=== PATIENT | female | born 1960 | race Caucasian/White ===

== ENCOUNTER 2016-09-17 08:02 | Outpatient (CLI) | payer OTHER | END 2016-09-17 08:03 | disposition home or self-care (01) | DX: Z00.00 Encounter for general adult medical examination without abnormal findings (principal); E78.5 Hyperlipidemia, unspecified ==

== ENCOUNTER 2019-06-29 14:12 | Emergency (ER) | payer OTHER ==
[2019-06-29 14:19] VITALS: BP 141/66
[2019-06-29] MEDS ORDERED: BUFFERED LIDOCAINE 10 ML SYRINGE SUBQ STA (14:38)
--- NOTE | 2019-06-29 14:39 | ED Physician Documentation ---
PD HPI UPPER EXT INJURY - Stated complaint Stated Complaint: 5TH DIGIT FINGER LAC - Chief complaint Chief Complaint: Laceration - History obtained from History obtained from: Patient (58-year-old woman who is up-to-date on tetanus cut her right pinky finger on sharp ice while cleaning out her freezer at home just prior to arrival.) Review of Systems Constitutional: reports: Reviewed and negative Cardiac: reports: Reviewed and negative Respiratory: reports: Reviewed and negative PD PAST MEDICAL HISTORY - Allergies Allergies/Adverse Reactions: Allergies Allergy/AdvReac Type Severity Reaction Status Date / Time Sulfa (Sulfonamide Allergy Rash Verified 06/29/19 14:18 Antibiotics) PD ED PE NORMAL - Vitals Vital signs reviewed: Yes - General General: Alert and oriented X 3, No acute distress - Extremities Extremities: Other (There is a 3 cm laceration on the palmar surface of the right pinky finger, it runs longitudinally basically from the flexor crease at the MCP to the middle part of the mid phalanx. There is no distal neurovascular compromise.) - Neuro Neuro: Alert and oriented X 3, Normal speech Results - Vitals Vitals: Vital Signs - 24 hr 06/29/19 14:16 Temperature 36 C L Heart Rate 102 H Respiratory 18 Rate Blood Pressure 141/66 H O2 Saturation 97 Oxygen O2 Source Room air Procedures - Laceration (location) R 5th finger Length in cm: 3 Wound type: Linear Neurovascular status: Sensory intact, Motor intact, Vascular intact Tendon involvement: Tendon intact Anesthesia: Lidocaine 1%, With bicarb Skin layer closure: Nylon, Interrupted, Size #-0 - enter number (5-0), Sutures - enter # (9) Other: Patient tolerated well, No complications, Neurovascular intact, Tetanus UTD Complexity: Simple Departure - Departure Disposition: 01 Home, Self Care Clinical Impression: Laceration Condition: Good Record reviewed to determine appropriate education?: Yes Instructions: ED Laceration Hand Comments: Come back for any signs of infection which would include: Redness, swelling, drainage, increased pain, or fevers. You can wash it soap and water. Keep it covered and moist with bacitracin ointment which is available over the counter; avoid neosporin. Follow-up with your physician in about 14 days for suture removal. Your blood pressure was elevated today on check into the emergency department. This does not mean that you have hypertension, it is a common phenomenon to come to the emergency department and have elevated blood pressure. I recommend that you see your primary care physician within the week to have it rechecked when you are feeling better.
[2019-06-29] MEDS ORDERED: BACITRACIN ZINC OINT 1 PACKET TOP STA (15:04)
== END 2019-06-29 15:25 | disposition home or self-care (01) ==
LOC: ED 14:12
DX: S61.216A Laceration without foreign body of right little finger without damage to nail, initial encounter (principal); W26.8XXA Contact with other sharp object(s), not elsewhere classified, initial encounter; Y93.E9 Activity, other interior property and clothing maintenance; Y92.009 Unspecified place in unspecified non-institutional (private) residence as the place of occurrence of the external cause; R03.0 Elevated blood-pressure reading, without diagnosis of hypertension
CPT/HCPCS: 12002; 99282; 99283; A9270

== ENCOUNTER 2020-10-31 17:25 | Emergency (ER) | payer OTHER ==
--- OUTSIDE RECORDS SUMMARY | 2020-10-31 17:29 | EXTERNAL MEDICAL SUMMARY RPT | Continuity of Care Document ---
:1960 Demographics Phone Unavailable Preferred Language [place] Citizen Marital Status Unknown Faith Affiliation Unknown Race Unknown Ethnic Group Unknown Author Organization [place] Address [address] [phone] Phone Care Team Providers Name Role Phone Newlon Unavailable Unavailable Medications date description facility 20201017 Diclofenac Sodium 75 MG Enteric Coated Tablet [facility] 20201014 Zol[facility]em tartrate 5 [facility] 20200919 Zolpidem tartrate 5 [facility] 20200919 Cyclobenzaprine hydrochloride 10 MG Ora l [facility] 20200901 24 HR lamotrigine 50 MG Extended Releas e Tablet [facility] 20200830 Zolpidem tartrate 5 [facility] Procedures date description facility 20201018 [facility] 20200919 [facility] Vital Signs date measurement value source 20200919 weight_standard 98.88 lb 20200919 weight_metric 44.85 kg 20200919 respiration_rate 18 /min 20200919 height_standard 67.5 in 20200919 height_metric 171.45 cm 20200919 heart_rate 92 /min 20200919 BP_systolic 120 mm[Hg] 20200919 BP_diastolic 70 mm[Hg] 20200919 BMI 33.6 kg/m2 20201018 weight_standard 99.79 lb 20201018 weight_metric 45.26 kg 20201018 height_standard 67.5 in 20201018 height_metric 171.45 cm 20201018 BP_systolic 114 mm[Hg] 20201018 BP_diastolic 76 mm[Hg] 20201018 BMI 33.9 kg/m2
--- OUTSIDE RECORDS SUMMARY | 2020-10-31 17:49 | EXTERNAL MEDICAL SUMMARY RPT | Continuity of Care Document ---
:1960 Demographics Phone Unavailable Preferred Language Ivorian Marital Status Unknown Shinto Affiliation Unknown Race Unknown Ethnic Group Unknown Author Organization [place] Address [address] [phone] Phone Care Team Providers Name Role Phone Newlon Unavailable Unavailable Medications date description facility 20201017 Diclofenac Sodium 75 MG Enteric Coated Tablet [facility] 20201014 Zolpidem tartrate 5 [facility] 20200919 Zolpidem tartrate 5 [facility] 20200919 Cyclobenzaprine hydrochloride 10 MG Ora l [facility] 20200901 24 HR lamotrigine 50 MG Extended Releas e Tablet [facility] 20200830 Zolpidem tartrate 5 [facility] Procedures date description facility 20201018 [facility] 20200919 [facility] Vital Signs date measurement value source 20200919 [...]
[2020-10-31 17:52] LABS: BASOPHILS # (AUTO) 0.1 10^3/uL (0.0-0.1); BASOPHILS % (AUTO) 0.5 %; EOSINOPHILS # (AUTO) 0.1 10^3/uL (0.0-0.7); EOSINOPHILS % (AUTO) 0.4 %; HCT - HEMATOCRIT 46.1 % (37.0-47.0); HGB - HEMOGLOBIN 15.1 g/dL (12.0-16.0); LYMPHOCYTES # (AUTO) 1.5 10^3/uL (1.5-3.5); LYMPHOCYTES % (AUTO) 12.1 %; MEAN CORPUSCULAR HEMOGLOBIN 29.7 pg (27.0-31.0); MEAN CORPUSCULAR HGB CONC 32.8 g/dL (32.0-36.0); MEAN CORPUSCULAR VOLUME 90.6 fL (81.0-99.0); MEAN PLATELET VOLUME 10.1 fL (7.9-10.8); MONOCYTES # (AUTO) 0.5 10^3/uL (0.0-1.0); MONOCYTES % (AUTO) 3.8 %; PLT - PLATELET COUNT 312 10^3/uL (130-450); RED BLOOD COUNT 5.09 10^6/uL (4.20-5.40); RED CELL DISTRIBUTION WIDTH 13.2 % (12.0-15.0)
[2020-10-31 18:05] LABS: ALBUMIN 4.6 g/dL (3.2-5.5); ALBUMIN/GLOBULIN RATIO 1.4 (1.0-2.2); BILIRUBIN,TOTAL 0.6 mg/dL (0.2-1.0); CALCIUM 9.9 mg/dL (8.5-10.3); CREATININE 0.6 mg/dL (0.4-1.0); POTASSIUM 3.6 mmol/L (3.5-5.0)
--- NOTE | 2020-10-31 18:33 | ED Physician Documentation ---
PD HPI ABD PAIN - Stated complaint Stated Complaint: ABD PX - Chief complaint Chief Complaint: Abd Pain - History of Present Illness Timing - onset: Enter time (02:00), Today Timing - details: Abrupt onset Pain level max: 8 Pain level now: 6 Quality: Pain Location: Other (band-like around uppper abdomen and mid-level back) Radiation: Other (mid-level back) Improved by: Other (no ameliorating factors) Worsened by: Other (no exacerbating factors) Associated symptoms: No: Fever, Nausea, Vomiting (x 1), Diarrhea, Constipation Similar symptoms before: Has not had sx before Recently seen: Not recently seen - Additional information Additional information: woke at 2 AM with upper abdominal pain that radiates around both sides to back, constant but waxing and waning without exacerbating nor ameliorating factors. denies fever, denies h/o similar symptoms Review of Systems Constitutional: denies: Fever, Chills, Sweats Cardiac: reports: Reviewed and negative Respiratory: reports: Reviewed and negative GI: reports: Abdominal Pain. 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 : None HEENT: None Musculoskeletal: Chronic back pain, Other Derm: None - Past Surgical History Past Surgical History: Yes Ortho: Arthroscopic surgery, Carpal Tunnel surgery - Present Medications Home Medications: Ambulatory Orders Medication Instructions Recorded Confirmed traMADol [Ultram] 50 mg PO Q6H PRN #20 tablet 10/31/20 - Allergies Allergies/Adverse Reactions: Allergies Allergy/AdvReac Type Severity Reaction Status Date / Time Sulfa (Sulfonamide Allergy Rash Verified 06/29/19 14:18 Antibiotics) - Social History Does the pt smoke?: No Smoking Status: Former smoker - Immunizations Immunizations are current?: No Immunizations: TDAP current <10years PD ED PE NORMAL - Vitals Vital signs reviewed: Yes - General General: Alert and oriented X 3, No acute distress, Well developed/nourished - HEENT HEENT: Moist mucous membranes - Cardiac Cardiac: RRR, No murmur - Respiratory Respiratory: No respiratory distress, Clear bilaterally - Abdomen Abdomen: Normal bowel sounds, Soft, Non tender, Non distended - Back Back: No CVA TTP - Derm Derm: Normal color, Warm and dry, No rash Results - Vitals Vitals: Vital Signs - 24 hr 10/31/20 10/31/20 10/31/20 17:27 19:11 21:18 Temperature 36.6 C 37.0 C Heart Rate 100 90 70 Respiratory 16 18 Rate Blood Pressure 148/95 H 155/99 H 136/70 H O2 Saturation 100 99 100 Oxygen O2 Source Room air - Labs Labs: Laboratory Tests 10/31/20 10/31/20 10/31/20 17:49 17:49 17:52 WBC 12.0 H RBC 5.09 Hgb 15.1 Hct 46.1 MCV 90.6 MCH 29.7 MCHC 32.8 RDW 13.2 Plt Count 312 MPV 10.1 Neut # (Auto) 10.0 H Lymph # (Auto) 1.5 [place] # (Auto) 0.5 Eos # (Auto) 0.1 Baso # (Auto) 0.1 Absolute Nucleated RBC 0.00 Nucleated RBC % 0.0 Sodium 136 Potassium 3.6 Chloride 100 L Carbon Dioxide 25 Anion Gap 11.0 BUN 18 Creatinine 0.6 Estimated GFR (MDRD) 103 Glucose 116 H Calcium 9.9 Total Bilirubin 0.6 AST 19 ALT 27 Alkaline Phosphatase 91 Total Protein 8.0 Albumin 4.6 Globulin 3.4 Albumin/Globulin Ratio 1.4 Lipase 23 Urine Color YELLOW Urine Clarity CLEAR Urine pH 5.5 Ur Specific [place] >=1.030 H Urine Protein NEGATIVE Urine Glucose (UA) NEGATIVE Urine Ketones 40 H Urine Occult Blood NEGATIVE Urine Nitrite NEGATIVE Urine Bilirubin NEGATIVE Urine Urobilinogen 0.2 (NORMAL) Ur Leukocyte Esterase NEGATIVE Ur Microscopic Review NOT INDICATED Urine Culture Comments NOT INDICATED - Rads (name of study) RUQ US Radiology: Prelim report reviewed, See rad report PD MEDICAL DECISION MAKING - ED course Complexity details: reviewed results, re-evaluated patient, considered differential, d/w patient ED course: patient presents with symptoms c/w biliary colic, reassuring blood tests with normal LFTs and minimally elevated WBC (12.0). she reports adequate relief of symptoms after IV toradol. US shows multiple gallstones without findings to suggest cholecystitis. results d/w patient, she is comfortable with d/c. advised to f/u with general surgery, return if worse Departure - Departure Disposition: 01 Home, Self Care Clinical Impression: Biliary colic Condition: Good Instructions: ED Gallstone W Biliary Colic Follow-Up: RAHUL CHAMBERS [Primary Care Provider] - Ana Zurita MD [Provider Admit Priv/Credential] - Prescriptions: traMADol [Ultram] 50 mg PO Q6H PRN #20 tablet PRN Reason: Pain Discharge Date/Time: 10/31/20 20:50
[2020-10-31 18:37] LABS: BILIRUBIN,URINE NEGATIVE (NEGATIVE); GLUCOSE, URINE (UA) NEGATIVE (NEGATIVE); KETONES,URINE (UA) 40 mg/dL (NEGATIVE); LEUKOCYTE ESTERASE, URINE NEGATIVE (NEGATIVE); NITRITE,URINE NEGATIVE (NEGATIVE); OCCULT BLOOD,URINE NEGATIVE (NEGATIVE); PH,URINE 5.5 PH (5.0-7.5); PROTEIN,URINE NEGATIVE (NEGATIVE); UROBILINOGEN,URINE 0.2 (NORMAL) E.U./dL (NORMAL)
[2020-10-31 18:38] LABS: CLARITY,URINE CLEAR (CLEAR)
[2020-10-31] MEDS ORDERED: KETOROLAC 60 MG/2 ML VIAL IM STA (18:59)
[2020-10-31] MEDS ORDERED: traMADol 50 MG TABLET PO STA (20:37)
--- NOTE | 2020-10-31 20:50 | Ultrasound Report ---
PROCEDURE: Abdomen Limited INDICATIONS: abd. pain TECHNIQUE: Real-time scanning was performed of the abdominal and retroperitoneal organs, with image documentatio n. COMPARISON: None. FINDINGS: Liver: Liver is normal in size and increased in echogenicity. Simple hepatic cysts are noted. Gallbladder: Gallbladder contains multiple tiny mobile gallstones. There is gallbladder wall thickeni ng to 5 mm. No pericholecystic fluid is seen. Sonographic Kaur sign is negative. Biliary ducts: Intrahepatic bile ducts are non-dilated. Extrahepatic bile duct caliber measures 6 m m. Normal is 6-7 mm or less in diameter, or 10 mm or less post-cholecystectomy. Pancreas: The pancreas is not well-visualized due to overlying bowel gas. Kidneys: Kidney is normal in size and echotexture. Right kidney measures 9.9 cm long. No hydroneph rosis or nephrolithiasis. No solid masses. Miscellaneous: No free right upper quadrant fluid. IMPRESSION: 1. Cholelithiasis with gallbladder wall thickening to 5 mm without pericholecystic fluid or positive sonographic Kaur sign. Findings could represent acute cholecystitis, and correlation with clinical and laboratory findings is recommended. 2. Diffusely increased hepatic echogenicity is nonspecific, but most commonly encountered in the set ting of hepatic steatosis. However, other causes of hepatocellular disease are not excluded. Recommen d clinical correlation. Preliminary findings were conveyed to the ordering provider by the stonecutter at the conclusion of t he exam. Reviewed by: Mario Spivey MD on 10/31/2020 8:48 PM PDT Approved by: Mario Spivey MD on 10/31/2020 8:48 PM PDT Station ID: [id number]
[2020-10-31 21:19] VITALS: BP 136/70
== END 2020-10-31 20:50 | disposition home or self-care (01) ==
LOC: ED 17:25
DX: K80.20 Calculus of gallbladder without cholecystitis without obstruction (principal); Z87.891 Personal history of nicotine dependence
CPT/HCPCS: 36415; 76705; 80053; 81003; 83690; 85025; 96372; 99284; A9270; 81001; 87086

== ENCOUNTER 2020-11-11 22:39 | Inpatient (IN) | payer OTHER ==
--- OUTSIDE RECORDS SUMMARY | 2020-11-11 22:42 | EXTERNAL MEDICAL SUMMARY RPT | Continuity of Care Document ---
:1960 Demographics Phone Unavailable Preferred Language Malagasy Marital Status Unknown Taoist Affiliation Unknown Race Unknown Ethnic Group Unknown Author Organization [place] Address [address] [phone] Phone Care Team Providers Name Role Phone Newlon Unavailable Unavailable Medications date description facility 20201108 Zolpidem tartrate 5 MG [facility] 20201017 Diclofenac Sodium 75 MG Enteric Coated Tablet [facility] 20201014 Zolpidem tartrate 5 MG [facility] 20200919 Zolpidem tartrate 5 MG [facility] 20200919 Cyclobenzaprine hydrochloride 10 MG Ora l [facility] 20200901 24 HR lamotrigine 50 MG Extended Releas e [facility] 20200830 Zolpidem tartrate 5 MG [facility] Procedures date description facility 20201110 [facility] 20201108 [facility] 20201018 [facility] 20200919 [facility] Vital Signs date measurement value source 20200919 [...] BP_diastolic 76 mm[Hg] 20201018 BMI 33.9 kg/m2 20201108 weight_standard 99.34 lb 20201108 weight_metric 45.06 kg 20201108 respiration_rate 18 /min 20201108 height_standard 67.5 in 20201108 height_metric 171.45 cm 20201108 heart_rate 88 /min 20201108 BP_systolic 126 mm[Hg] [id number] BP_diastolic 78 mm[Hg] 20201108 BMI 33.7 kg/m2 20201110 weight_standard 99.34 lb 20201110 weight_metric 45.06 kg 20201110 temperature_standard 98.3 F 20201110 temperature_metric 36.83 C 20201110 height_standard 67.5 in 20201110 height_metric 171.45 cm 20201110 heart_rate 104 /min 20201110 BP_systolic 144 mm[Hg] 20201110 BP_diastolic 88 mm[Hg] 20201110 BMI 33.7 kg/m2
--- NOTE | 2020-11-11 23:12 | ED Physician Documentation ---
PD HPI ABD PAIN - Stated complaint Stated Complaint: AB PX - Chief complaint Chief Complaint: Abd Pain - History obtained from History obtained from: Patient - History of Present Illness Timing - onset: How many days ago (5) Timing - duration: Days (5) Timing - details: Abrupt onset, Still present, Waxing and waning (onset about 5 days ago RUQ pain and seen in ER. Given meds with improvement, and U/S showing gallstones with some wall thickening. Had some pains the ensuing days. Met with Surgeon in [place] to plan surgery. No date set as yet. Patient with abrupt worsening of pain this evening, worse than prior.) Quality: Aching, Sharp, Pain Location: RUQ Radiation: Right flank Improved by: No: Laying still, Vomiting, Position Worsened by: Eating, Moving, Breathing, Palpation Associated symptoms: Nausea, Vomiting, Loss of appetite. No: Fever, Diarrhea, Constipation, Dysuria Similar symptoms before: Diagnosis (recent diagnosis of gallstones/biliary colic, with possible early cholecystitis just 5 days ago.) Recently seen: Clinic (discussed surgery on outpt visit, but no date set.), Emergency Dept Review of Systems Constitutional: denies: Fever, Chills, Myalgias Nose: denies: Rhinorrhea / runny nose, Congestion Throat: denies: Sore throat Respiratory: denies: Cough GI: reports: Abdominal Pain, Nausea, Vomiting. denies: Constipation, Diarrhea : denies: Dysuria, Frequency Skin: denies: Rash, Lesions Neurologic: reports: Generalized weakness. 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 : None HEENT: None Musculoskeletal: Chronic back pain, Other Derm: None - Past Surgical History Past Surgical History: Yes Ortho: Arthroscopic surgery, Carpal Tunnel surgery - Present Medications Home Medications: Ambulatory Orders Medication Instructions Recorded Confirmed traMADol [Ultram] 50 mg PO Q6H PRN #20 tablet 10/31/20 - Allergies Allergies/Adverse Reactions: Allergies Allergy/AdvReac Type Severity Reaction Status Date / Time Sulfa (Sulfonamide Allergy Rash Verified 11/11/20 22:57 Antibiotics) - Social History Does the pt smoke?: No Smoking Status: Former smoker - Immunizations Immunizations are current?: No Immunizations: TDAP current <10years PD ED PE NORMAL - Vitals Vital signs reviewed: Yes - General General: Alert and oriented X 3, Well developed/nourished, Other (appears in considerable pain upper abd. Holding emesis bag. ) - HEENT HEENT: PERRL (nonicteric.) - Neck Neck: Supple, no meningeal sign, No adenopathy - Cardiac Cardiac: RRR, No murmur - Respiratory Respiratory: Clear bilaterally - Abdomen Abdomen: Soft, Non distended, No organomegaly, Other (RUQ significantly tender with guarding and percussion tender. Referred pain from LUQ and periumbilical area to RUQ.). No: Normal bowel sounds (diminished) - Female Female : Deferred - Rectal Rectal: Deferred - Back Back: No CVA TTP, No spinal TTP - Derm Derm: Normal color, Warm and dry - Extremities Extremities: No edema, No calf tenderness / cord - Neuro Neuro: Alert and oriented X 3, No motor deficit, Normal speech Results - Vitals Vitals: Vital Signs - 24 hr 11/11/20 11/12/20 11/12/20 22:45 00:15 02:00 Temperature 36.3 C L Heart Rate 83 85 74 Respiratory 24 18 18 Rate Blood Pressure 90/57 L 99/88 H 117/69 O2 Saturation 100 94 96 Oxygen O2 Source Room air - Labs Labs: Laboratory Tests 11/11/20 11/11/20 11/12/20 23:15 23:15 01:05 WBC 8.8 RBC 5.00 Hgb 14.7 Hct 44.6 MCV 89.2 MCH 29.4 MCHC 33.0 RDW 13.2 Plt Count 338 MPV 10.0 Neut # (Auto) 5.0 Lymph # (Auto) 2.9 [place] # (Auto) 0.6 Eos # (Auto) 0.1 Baso # (Auto) 0.1 Absolute Nucleated RBC 0.00 Nucleated RBC % 0.0 Sodium 142 Potassium 2.8 L Chloride 106 Carbon Dioxide 24 Anion Gap 12.0 BUN 20 Creatinine 0.7 Estimated GFR (MDRD) 86 L Glucose 121 H Calcium 10.0 Total Bilirubin 0.6 AST 45 H ALT 36 Alkaline Phosphatase 88 Total Protein 7.7 Albumin 4.6 Globulin 3.1 Albumin/Globulin Ratio 1.5 Lipase 27 Nasal Adenovirus (PCR) NOT DETECTED Nasal B. parapertussis DNA (PCR) NOT DETECTED Nasal Coronavir 229E PCR NOT DETECTED Nasal Coronavir HKU1 PCR NOT DETECTED Nasal Coronavir NL63 PCR NOT DETECTED Nasal Coronavir OC43 PCR NOT DETECTED Nasal Enterovir/Rhinovir PCR NOT DETECTED Nasal Influenza B PCR NOT DETECTED Nasal Influenza A PCR NOT DETECTED Nasal Parainfluen 1 PCR NOT DETECTED Nasal Parainfluen 2 PCR NOT DETECTED Nasal Parainfluen 3 PCR NOT DETECTED Nasal Parainfluen 4 PCR NOT DETECTED Nasal RSV (PCR) NOT DETECTED Nasal B.pertussis DNA PCR NOT DETECTED Nasal C.pneumoniae (PCR) NOT DETECTED Laz Human Metapneumo PCR NOT DETECTED Nasal M.pneumoniae (PCR) NOT DETECTED Nasal SARS-CoV-2 (PCR) NOT DETECTED - Rads (name of study) RUQ U/S Radiology: Prelim report reviewed (similar to prior with stones/sludge. There is some wall thickening. No surrounding fluid. ), See rad report PD MEDICAL DECISION MAKING - ED course Complexity details: re-evaluated patient (The pain is improved with IV medications. However she is still focally tender right upper quadrant. She states the pain was severe this evening and there had been discussion of gallbla dder surgery. Ultrasound shows some wall thickening/stones. Ongoing pain suggests need for more urgent surgery), considered differential, d/w patient Departure - Departure Disposition: ED Place in Observation Clinical Impression: RUQ abdominal pain, Acute cholecystitis Condition: Stable Discharge Date/Time: 11/12/20 03:36
--- OUTSIDE RECORDS SUMMARY | 2020-11-11 23:12 | EXTERNAL MEDICAL SUMMARY RPT | Continuity of Care Document ---
:1960 Demographics Phone Unavailable Preferred Language Cymraes Marital Status Unknown Oriental Orthodox Affiliation Unknown Race Unknown Ethnic Group Unknown Author Organization [place] Address [address] [phone] Phone Care Team Providers Name Role Phone Newlon Unavailable Unavailable Medications date description facility 20201108 Zolpidem tartrate 5 [facility] 20201017 Diclofenac Sodium 75 MG Enteric Coated Tablet [facility] 20201014 Zolpidem tartrate 5 MG [facility] 20200919 Zolpidem tartrate 5 MG [facility] 20200919 Cyclobenzaprine hydrochloride 10 MG Ora l [facility] 20200901 24 HR lamotrigine 50 MG Extended Releas e [facility] 20200830 Zolpidem tartrate 5 MG [facility] Procedures date description facility 20201110 [facility] 20201108 [facility] 20201018 [facility] 20200919 [facility] Vital Signs date measurement value source 20200919 [...] heart_rate 88 /min 20201108 BP_systolic 126 mm[Hg] [id number] BP_diastolic 78 mm[Hg] 20201108 BMI 33.7 kg/m2 20201110 weight_standard 99.34 lb 20201110 weight_metric 45.06 kg 20201110 temperature_standard 98.3 F 20201110 temperature_metric 36.83 C 20201110 height_standard 67.5 in 20201110 height_metric 171.45 cm 20201110 heart_rate 104 /min 20201110 BP_systolic 144 mm[Hg] 20201110 BP_diastolic 88 mm[Hg] 20201110 BMI 33.7 kg/m2
[2020-11-11] MEDS ORDERED: SODIUM CHLORIDE 0.9% 1,000 ML IV STA (23:17)
[2020-11-11] MEDS ORDERED: KETOROLAC 15 MG/ML VIAL IVP STA (23:18)
[2020-11-11] MEDS ORDERED: ONDANSETRON 4 MG/2 ML VIAL IVP STA (23:18)
[2020-11-11] MEDS ORDERED: HYDROmorphone 1 MG/ML CARPUJECT IVP STA (23:18)
[2020-11-11 23:19] LABS: BASOPHILS # (AUTO) 0.1 10^3/uL (0.0-0.1); BASOPHILS % (AUTO) 0.7 %; EOSINOPHILS # (AUTO) 0.1 10^3/uL (0.0-0.7); EOSINOPHILS % (AUTO) 1.6 %; HCT - HEMATOCRIT 44.6 % (37.0-47.0); HGB - HEMOGLOBIN 14.7 g/dL (12.0-16.0); LYMPHOCYTES # (AUTO) 2.9 10^3/uL (1.5-3.5); LYMPHOCYTES % (AUTO) 32.9 %; MEAN CORPUSCULAR HEMOGLOBIN 29.4 pg (27.0-31.0); MEAN CORPUSCULAR VOLUME 89.2 fL (81.0-99.0); MONOCYTES # (AUTO) 0.6 10^3/uL (0.0-1.0); MONOCYTES % (AUTO) 7.2 %; NEUTROPHILS % (AUTO) 57.3 %; PLT - PLATELET COUNT 338 10^3/uL (130-450); RED CELL DISTRIBUTION WIDTH 13.2 % (12.0-15.0); WHITE BLOOD COUNT 8.8 x10^3/uL (4.8-10.8)
[2020-11-11 23:43] LABS: ALBUMIN 4.6 g/dL (3.2-5.5); ALBUMIN/GLOBULIN RATIO 1.5 (1.0-2.2); BILIRUBIN,TOTAL 0.6 mg/dL (0.2-1.0); CREATININE 0.7 mg/dL (0.4-1.0); POTASSIUM 2.8 mmol/L (3.5-5.0); TOTAL PROTEIN 7.7 g/dL (6.7-8.2)
[2020-11-12 02:04] LABS: B. PARAPERTUSSIS- RESP PCR PAN NOT DETECTED; B. PERTUSSIS- RESP PCR PANEL NOT DETECTED; C. PNEUMONIAE- RESP PCR PANEL NOT DETECTED; CORONAVIRUS 229E-RESP PCR NOT DETECTED; CORONAVIRUS HKU1-RESP PCR NOT DETECTED; CORONAVIRUS NL63-RESP PCR NOT DETECTED; CORONAVIRUS OC43-RESP PCR NOT DETECTED; HUMAN METAPNEUMOVIRUS NOT DETECTED; INFLUENZA A- RESP PCR PANEL NOT DETECTED; INFLUENZA B - RESP PCR PANEL NOT DETECTED; M. PNEUMONIAE- RESP PCR PANEL NOT DETECTED; PARAINFLUENZA VIRUS 1 NOT DETECTED; PARAINFLUENZA VIRUS 2 NOT DETECTED; PARAINFLUENZA VIRUS 3 NOT DETECTED; PARAINFLUENZA VIRUS 4 NOT DETECTED; RHINOVIRUS/ENTEROVIRUS NOT DETECTED; RSV- RESP PCR PANEL NOT DETECTED; SARS-CoV-2 -RESP PCR PANEL NOT DETECTED
[2020-11-12] MEDS ORDERED: ONDANSETRON 4 MG/2 ML VIAL IVP PRN (03:11)
[2020-11-12] MEDS ORDERED: PROCHLORPERAZINE 10 MG/2 ML VIAL IVP PRN (03:11)
[2020-11-12] MEDS ORDERED: ONDANSETRON ODT 4 MG TABLET TL PRN (03:11)
[2020-11-12] MEDS ORDERED: HYDROmorphone 0.5 MG/0.5 ML SYRINGE IVP PRN (03:11)
[2020-11-12] MEDS ORDERED: SODIUM CHLORIDE FLUSH 0.9% 10 ML SYRINGE IVP PRN (03:11)
--- OUTSIDE RECORDS SUMMARY | 2020-11-12 03:27 | EXTERNAL MEDICAL SUMMARY RPT | Continuity of Care Document ---
:1960 Demographics Phone Unavailable Preferred Language Andorran Marital Status Unknown Mandaeism Affiliation Unknown Race Unknown Ethnic Group Unknown Author Organization [place] Address [address] [phone] Phone Care Team Providers Name Role Phone Newlon Unavailable Unavailable Medications date description facility 20201108 Zolpidem tartrate 5 MG [facility] 20201017 Diclofenac Sodium 75 MG Enteric Coated Tablet [facility] 20201014 Zolpidem tartrate 5 MG [facility] 20200919 Zolpidem tartrate 5 MG [facility] 20200919 Cyclobenzaprine hydrochloride 10 MG Ora l [facility] 20200901 24 HR lamotrigine 50 MG Extended Releas e [facility] 20200830 Zolpidem tartrate 5 MG [facility] Procedures date description facility 20201110 [facility] 20201108 [facility] 20201018 [facility] 20200919 [facility] Vital Signs date measurement value source [...] heart_rate 88 /min 20201108 BP_systolic 126 mm[Hg] [id number] BP_diastolic 78 mm[Hg] 20201108 BMI 33.7 kg/m2 20201110 weight_standard 99.34 lb 20201110 weight_metric 45.06 kg 20201110 temperature_standard 98.3 F 20201110 temperature_metric 36.83 C 20201110 height_standard 67.5 in 20201110 height_metric 171.45 cm 20201110 heart_rate 104 /min 20201110 BP_systolic 144 mm[Hg] 20201110 BP_diastolic 88 mm[Hg] 20201110 BMI 33.7 kg/m2
[2020-11-12] MEDS: LACTATED RINGERS 1,000 ML IV SCH ×2 (03:54→14:37)
[2020-11-12] MEDS: POTASSIUM CHLOR 10 MEQ/100 ML 10 MEQ/100 ML BAG IV SCH ×4 (03:55→07:51)
[2020-11-12] MEDS: AMPICILLIN/SULBACTAM 3 GM in SODIUM CHLORIDE 0.9% MINIBAG 100 ML IV SCH ×4 (06:03→23:52)
[2020-11-12 07:10] LABS: BILIRUBIN,URINE NEGATIVE (NEGATIVE); CLARITY,URINE CLEAR (CLEAR); GLUCOSE, URINE (UA) NEGATIVE (NEGATIVE); KETONES,URINE (UA) NEGATIVE (NEGATIVE); LEUKOCYTE ESTERASE, URINE NEGATIVE (NEGATIVE); NITRITE,URINE NEGATIVE (NEGATIVE); OCCULT BLOOD,URINE NEGATIVE (NEGATIVE); PH,URINE 6.5 PH (5.0-7.5); PROTEIN,URINE NEGATIVE (NEGATIVE); UROBILINOGEN,URINE 4 E.U./dL (NORMAL)
[2020-11-12] MEDS: SODIUM CHLORIDE FLUSH 0.9% 10 ML SYRINGE IVP SCH ×3 (08:35→23:52)
--- NOTE | 2020-11-12 10:41 | Ultrasound Report ---
PROCEDURE: Abdomen Limited INDICATIONS: gallstones; increased pain tonight TECHNIQUE: Real-time focused scanning was performed of the abdomen, with image documentation. COMPARISON: 10/31/2020 FINDINGS: The liver demonstrates normal size. The liver demonstrates moderately increased echogeni city, which limits ultrasound sensitivity for detection of masses. Multiple liver cysts are seen, wit h the largest within the left lobe of the liver that measures up to 2.2 cm Mild dependent stones and sludge can be seen. The gallbladder wall is thickened, measuring up to 4.7 mm. There is no specific pericholecystic fluid. The sonographic Kaur's sign is ambiguous, given the patient's medicated state. No biliary ductal dilatation is seen. The common bile duct measures 5 mm. The visualized pancreas is within normal limits. The visualized right kidney is unremarkable. IMPRESSION: Stones and sludge can be seen within the gallbladder and there is mild gallbladder wall thickening. T he sonographic Kaur's sign is ambiguous. Please correlate with patient presentation, clinical exami nation findings, and laboratory values, as appropriate. If clinically appropriate, a dedicated nuclear medicine HIDA scan could be considered for further kelsea luation. No biliary dilatation. Incidental note is made of: Fatty liver infiltration Simple appearing liver cysts Note: No significant discrepancy from the preliminary report. Reviewed by: Jagjit Najera MD on 11/12/2020 9:40 AM SAM Approved by: Jagjit Najera MD on 11/12/2020 9:40 AM SAM Station ID: [id number]
[2020-11-12 12:17] LABS: BASOPHILS % (AUTO) 0.5 %; EOSINOPHILS # (AUTO) 0.1 10^3/uL (0.0-0.7); EOSINOPHILS % (AUTO) 1.7 %; HCT - HEMATOCRIT 41.7 % (37.0-47.0); HGB - HEMOGLOBIN 13.6 g/dL (12.0-16.0); LYMPHOCYTES % (AUTO) 17.5 %; MEAN CORPUSCULAR HEMOGLOBIN 29.8 pg (27.0-31.0); MEAN CORPUSCULAR HGB CONC 32.6 g/dL (32.0-36.0); MEAN CORPUSCULAR VOLUME 91.2 fL (81.0-99.0); MEAN PLATELET VOLUME 9.8 fL (7.9-10.8); MONOCYTES # (AUTO) 0.5 10^3/uL (0.0-1.0); MONOCYTES % (AUTO) 8.3 %; NEUTROPHILS # (AUTO) 4.2 10^3/uL (1.5-6.6); NEUTROPHILS % (AUTO) 71.7 %; PLT - PLATELET COUNT 260 10^3/uL (130-450); RED BLOOD COUNT 4.57 10^6/uL (4.20-5.40); RED CELL DISTRIBUTION WIDTH 13.4 % (12.0-15.0); WHITE BLOOD COUNT 5.9 x10^3/uL (4.8-10.8)
[2020-11-12 12:38] LABS: ALBUMIN 3.6 g/dL (3.2-5.5); ALBUMIN/GLOBULIN RATIO 1.2 (1.0-2.2); BILIRUBIN,TOTAL 1.5 mg/dL (0.2-1.0); CREATININE 0.6 mg/dL (0.4-1.0); POTASSIUM 3.7 mmol/L (3.5-5.0); TOTAL PROTEIN 6.5 g/dL (6.7-8.2)
[2020-11-12] MEDS ORDERED: HYDROmorphone PCA 20MG/100ML IV PRN (13:30)
--- NOTE | 2020-11-12 13:35 | SURGERY HX AND PHYSICAL(T) ---
Surgical History & Physical - Chief Complaint/HPI Chief Complaint: Abdominal pain History of Present Illness: Abrupt onset, Still present, Waxing and waning (onset about 5 days ago) RUQ pain and seen in ER. Given meds with improvement, and U/S showing gallstones with some wall thickening. Had some pains the ensuing days. Met with Surgeon in [place] to plan surgery. No date set as yet. Patient with abrupt worsening of pain this evening, worse than prior.She reports that none of the pain that she is experienced up to this point was as severe as what she felt this evening.Grabs this pain is worse than child bearing and reports that she had no anesthetic during her childbirth experiences. - PMH/PSH/Social Hx Does the pt have a hx of MRSA?: No Neurological History: None Eyes, Ears, Nose, Throat: None Cardiovascular: None Respiratory: None Skin: None Endocrine/Autoimmune: None Gastrointestinal: None SEO CONSULTANT: None Urinary: None Musculoskeletal: Chronic back pain, Other Orthopedic: Arthroscopic surgery, Carpal Tunnel surgery Smoking Status: Former smoker - Home Meds and Allergies Home Medications: Diclofenac Sodium Dr [Voltaren] 75 mg PO BIDWM 11/12/20 Gabapentin [Neurontin] 300 mg PO TID 11/12/20 Zolpidem [Ambien] 5 mg PO HS 11/12/20 lamoTRIgine [Lamictal Xr] 100 mg PO DAILY 11/12/20 Allergies/Adverse Reactions: Allergies Allergy/AdvReac Type Severity Reaction Status Date / Time Sulfa (Sulfonamide Allergy Rash Verified 11/11/20 22:57 Antibiotics) - Review of Systems Gastrointestinal: Abdominal pain - Vital Signs Heart Rate: 90 Blood Pressure: 124/62 Temperature: 36.5 C Respiratory Rate: 18 O2 Saturation: 100 Weight (kg): 96.5 kg Height: 1.7 m - Physical Exam General Appearance: positive: Alert, Mild distress Eyes Bilatera: positive: Normal inspection, PERRL, EOMI Neck: positive: Nml inspection, Thyroid nml, No JVD Respiratory: positive: Chest non-tender, No respiratory distress, Breath sounds nml Cardiovascular: positive: Regular rate & rhythm, No murmur. negative: Tachycardia Peripheral Pulses: positive: 1+ Abdomen: positive: Nml bowel sounds, No distention, Tenderness, Guarding. negative: Rebound Skin: positive: Color nml Extremities: positive: Non-tender - Patient Review Patient Review: Problems were reviewed with the patient during this visit. Medications were reviewed with the patient during this visit. Allergies were reviewed this patient during this visit. Pertinent Tests Reviewed: All pertitent test for this patient were reviewed. - Assessment & Plan Assessment and Plan: When she was admitted last evening it was noted that she had a low potassium. I repeated her labs at noon today and now she has an elevated bilirubin as well as elevated alk phos and transaminases. This is all consistent with a common bile duct stone. Fortunately her white count is still normal. Her potassium is also normalized. After discussing this with the patient, we will keep her in her overnight with IV fluids and pain control. Hopefully she will be able to pass the stone. I will recheck her labs in the morning. I would prefer not to perform lap shahzad until the stone is out as ERCP increases the risk of cystic duct stump leak.Patient is expressed an understanding of our discussion and is in this plan.
[2020-11-12] MEDS ORDERED: lamoTRIgine 25 MG TABLET PO SCH (21:00)
[2020-11-12] MEDS: ZOLPIDEM 5 MG TABLET PO PRN (21:01)
[2020-11-13] MEDS: LACTATED RINGERS 1,000 ML IV SCH ×2 (01:39→12:03)
[2020-11-13 06:03] LABS: BASOPHILS # (AUTO) 0.1 10^3/uL (0.0-0.1); BASOPHILS % (AUTO) 0.8 %; EOSINOPHILS # (AUTO) 0.3 10^3/uL (0.0-0.7); EOSINOPHILS % (AUTO) 5.4 %; HCT - HEMATOCRIT 40.8 % (37.0-47.0); HGB - HEMOGLOBIN 13.4 g/dL (12.0-16.0); LYMPHOCYTES # (AUTO) 0.8 10^3/uL (1.5-3.5); LYMPHOCYTES % (AUTO) 13.7 %; MEAN CORPUSCULAR HEMOGLOBIN 29.8 pg (27.0-31.0); MEAN CORPUSCULAR HGB CONC 32.8 g/dL (32.0-36.0); MEAN CORPUSCULAR VOLUME 90.7 fL (81.0-99.0); MEAN PLATELET VOLUME 10.2 fL (7.9-10.8); MONOCYTES # (AUTO) 0.3 10^3/uL (0.0-1.0); MONOCYTES % (AUTO) 4.4 %; NEUTROPHILS # (AUTO) 4.5 10^3/uL (1.5-6.6); NEUTROPHILS % (AUTO) 75.5 %; PLT - PLATELET COUNT 256 10^3/uL (130-450); RED CELL DISTRIBUTION WIDTH 13.5 % (12.0-15.0)
[2020-11-13] MEDS: AMPICILLIN/SULBACTAM 3 GM in SODIUM CHLORIDE 0.9% MINIBAG 100 ML IV SCH ×4 (06:11→23:38)
[2020-11-13 06:22] LABS: ALBUMIN 3.5 g/dL (3.2-5.5); ALKALINE PHOSPHATASE 230 IU/L (42-121); ALT ALANINE AMINOTRANSFERASE 1110 IU/L (10-60); AST ASPARTATE AMINOTRANSFERASE 680 IU/L (10-42); BILIRUBIN,DIRECT 0.4 mg/dL (0.1-0.5); BILIRUBIN,TOTAL 1.4 mg/dL (0.2-1.0); BUN - BLOOD UREA NITROGEN 8 mg/dL (6-20); CARBON DIOXIDE - CO2 28 mmol/L (21-32); CHLORIDE 105 mmol/L (101-111); CREATININE 0.7 mg/dL (0.4-1.0); GFR - MDRD 86 (>89); GLUCOSE 101 mg/dL (70-100); IONIZED CALCIUM IF INDICATED NO; LIPASE 303 U/L (22-51); POTASSIUM 3.7 mmol/L (3.5-5.0); SODIUM 140 mmol/L (135-145); TOTAL PROTEIN 6.3 g/dL (6.7-8.2)
[2020-11-13] MEDS: LAMOTRIGINE 50 MG PO SCH (08:40)
[2020-11-13] MEDS: SODIUM CHLORIDE FLUSH 0.9% 10 ML SYRINGE IVP SCH ×3 (08:40→23:38)
--- NOTE | 2020-11-13 12:36 | PHARMACY PROGRESS NOTE ---
- Best Possible Medication History Admit Date and Time: 11/12/20310 Processed by: Pharmacy Medication History completed: Yes Secondary Source(s): Pharmacy records, Insurance records As the person ultimately responsible for medication therapy, providers are able to order a medication from an existing home medication list in [facility] via the "Reconcile Routine" prior to Confirmation of that medication by client support analyst. Such practice is discouraged except when the physician, in their clinical judgment, deems that a medical need exists for a medication without regard to previous use.
--- NOTE | 2020-11-13 14:37 | PROVIDER PROGRESS NOTE ---
Subjective - Prog Note Date Prog Note Date: 11/13/20 Prog Note Time: 14:33 - Subjective Pt reports feeling: Improved Subjective: Pain has resolved over night. She reports she is feeling much better. 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 Tolerating clear liquids Current Medications - Current Medications Current Medications: Active Medications Generic Name Dose Route Start Last Admin Trade Name Freq PRN Reason Stop Dose Admin Hydromorphone HCl 20 mg 11/12/20 13:30 11/12/20 15:59 Hydromorphone Cloth Drier 20mg/100ml IV 20 mg PRN PRN Administration Abdominal Pain Protocol Lactated Ringer's 1,000 mls @ 100 mls/hr 11/12/20 04:00 11/13/20 12:52 Lr IV 100 mls/hr .Q10H [facility] Infusion Ampicillin Sodium/Sulbactam 100 mls @ 200 mls/hr 11/12/20 06:00 11/13/20 12:51 Sodium 3 gm/ Sodium Chloride IV Infused Q6HR [facility] Infusion Ondansetron HCl 4 mg 11/12/20 03:11 Ondansetron Odt 4 Mg Tablet TL Q6HR PRN Nausea / Vomiting Ondansetron HCl 4 mg 11/12/20 03:11 Ondansetron 4 Mg/2 Ml Vial IVP Q6HR PRN Nausea / Vomiting Lamotrigine [ 2 each 11/13/20 09:00 11/13/20 08:40 Lamictal Xr] 50 Mg PO 2 each Tab DAILY [facility] Administration Prochlorperazine Edisylate 10 mg 11/12/20 03:11 Prochlorperazine 10 Mg/2 Ml Vial IVP Q6HR PRN Nausea / Vomiting Sodium Chloride 10 ml 11/12/20 03:11 11/13/20 12:07 Sodium Chloride Flush 0.9% 10 Ml Syringe IVP 10 ml PRN PRN Administration NEEDED PER PROVIDER ORDERS Sodium Chloride 10 ml 11/12/20 09:00 11/13/20 08:40 Sodium Chloride Flush 0.9% 10 Ml Syringe IVP Not Given 0100,0900,1700 [facility] Zolpidem Tartrate 5 mg 11/12/20 21:00 11/12/20 21:01 Zolpidem 5 Mg Tablet PO 5 mg HS PRN Administration Insomnia Diclofenac Sodium Dr [Voltaren] 75 mg PO BIDWM 11/12/20 Zolpidem [Ambien] 5 mg PO HS 11/12/20 lamoTRIgine [Lamictal Xr] 100 mg PO DAILY 11/12/20 Objective - Vital Signs/Intake & Output Reviewed Vital Signs: Yes Vital Signs: Vital Signs x48h Temp Pulse Resp BP BP Pulse Ox 11/13/20 14:12 18 11/13/20 12:25 36.8 C 81 18 144/64 H 96 11/13/20 12:02 18 11/13/20 09:10 17 11/13/20 07:31 18 11/13/20 07:30 37.1 C 85 18 128/61 94 11/13/20 06:59 18 Intake & Output: Intake & Output 11/10/20 11/11/20 11/12/20 11/13/20 23:59 23:59 23:59 23:59 Intake Total 3970.000 2871.667 Output Total 2900 2250 Balance 1070.000 621.667 - Objective General Appearance: positive: No acute distress, Alert Eyes Bilateral: positive: Normal inspection ENT: positive: ENT inspection nml Neck: positive: Nml inspection Respiratory: positive: Chest non-tender, No respiratory distress, Breath sounds nml Cardiovascular: positive: Regular rate & rhythm Abdomen: positive: Nml bowel sounds, Tenderness (minimal now). negative: Guarding, Rebound Back: positive: Nml inspection Skin: positive: Color nml Extremities: positive: Non-tender - Lab Results Fish Bones: 11/13/20 05:48 11/13/20 05:48 Other Labs: Lab Results x24hrs 11/13/20 11/13/20 Range/Units 05:48 05:48 WBC 6.0 (4.8-10.8) x10^3/uL RBC 4.50 (4.20-5.40) 10^6/uL Hgb 13.4 (12.0-16.0) g/dL Hct 40.8 (37.0-47.0) % MCV 90.7 (81.0-99.0) fL MCH 29.8 (27.0-31.0) pg MCHC 32.8 (32.0-36.0) g/dL RDW 13.5 (12.0-15.0) % Plt Count 256 (130-450) 10^3/uL MPV 10.2 (7.9-10.8) fL Neut # (Auto) 4.5 (1.5-6.6) 10^3/uL Lymph # (Auto) 0.8 L (1.5-3.5) 10^3/uL Pettis # (Auto) 0.3 (0.0-1.0) 10^3/uL Eos # (Auto) 0.3 (0.0-0.7) 10^3/uL Baso # (Auto) 0.1 (0.0-0.1) 10^3/uL Absolute Nucleated RBC 0.00 x10^3/uL Nucleated RBC % 0.0 /100WBC Sodium 140 (135-145) mmol/L Potassium 3.7 (3.5-5.0) mmol/L Chloride 105 (101-111) mmol/L Carbon Dioxide 28 (21-32) mmol/L Anion Gap 7.0 (6-13) BUN 8 (6-20) mg/dL Creatinine 0.7 (0.4-1.0) mg/dL Estimated GFR (MDRD) 86 L (>89) Glucose 101 H (70-100) mg/dL Calcium 9.0 (8.5-10.3) mg/dL Ionized Calcium NO Total Bilirubin 1.4 H (0.2-1.0) mg/dL Direct Bilirubin 0.4 (0.1-0.5) mg/dL AST 680 H (10-42) IU/L ALT 1110 H (10-60) IU/L Alkaline Phosphatase 230 H (42-121) IU/L Total Protein 6.3 L (6.7-8.2) g/dL Albumin 3.5 (3.2-5.5) g/dL Globulin 2.8 (2.1-4.2) g/dL Lipase 303 H (22-51) U/L ABX Reporting Has patient been on IV antibiotics over the past 48 hours?: Yes Assessment/Plan - Problem List (1) Choledocholithiasis with cholecystitis Impression: Labs still consistent with mild hepatitis secondary to transient obstruction and mild pancreatitis. This likely represents the passed stone as her pain has resolved. Will plan to repeat labs in the morning. As long as the values are reassuring, will proceed with cholecystecomy and cholangiogram tomorrow.
[2020-11-13] MEDS: ZOLPIDEM 5 MG TABLET PO PRN (21:12)
[2020-11-14] MEDS: LACTATED RINGERS 1,000 ML IV SCH ×3 (00:10→20:28)
[2020-11-14 05:00] LABS: BASOPHILS # (AUTO) 0.1 10^3/uL (0.0-0.1); BASOPHILS % (AUTO) 0.9 %; EOSINOPHILS # (AUTO) 0.5 10^3/uL (0.0-0.7); EOSINOPHILS % (AUTO) 8.2 %; HCT - HEMATOCRIT 40.6 % (37.0-47.0); HGB - HEMOGLOBIN 12.8 g/dL (12.0-16.0); LYMPHOCYTES # (AUTO) 1.5 10^3/uL (1.5-3.5); LYMPHOCYTES % (AUTO) 26.1 %; MEAN CORPUSCULAR HEMOGLOBIN 29.1 pg (27.0-31.0); MEAN CORPUSCULAR HGB CONC 31.5 g/dL (32.0-36.0); MEAN CORPUSCULAR VOLUME 92.3 fL (81.0-99.0); MEAN PLATELET VOLUME 10.2 fL (7.9-10.8); MONOCYTES # (AUTO) 0.5 10^3/uL (0.0-1.0); MONOCYTES % (AUTO) 8.4 %; NEUTROPHILS # (AUTO) 3.2 10^3/uL (1.5-6.6); PLT - PLATELET COUNT 251 10^3/uL (130-450); RED CELL DISTRIBUTION WIDTH 13.5 % (12.0-15.0); WHITE BLOOD COUNT 5.7 x10^3/uL (4.8-10.8)
[2020-11-14 05:20] LABS: ALBUMIN 3.5 g/dL (3.2-5.5); ALKALINE PHOSPHATASE 219 IU/L (42-121); ALT ALANINE AMINOTRANSFERASE 713 IU/L (10-60); AST ASPARTATE AMINOTRANSFERASE 189 IU/L (10-42); BILIRUBIN,DIRECT 0.3 mg/dL (0.1-0.5); BILIRUBIN,TOTAL 0.7 mg/dL (0.2-1.0); BUN - BLOOD UREA NITROGEN 7 mg/dL (6-20); CALCIUM 8.8 mg/dL (8.5-10.3); CARBON DIOXIDE - CO2 27 mmol/L (21-32); CHLORIDE 105 mmol/L (101-111); CREATININE 0.6 mg/dL (0.4-1.0); GFR - MDRD 103 (>89); GLUCOSE 115 mg/dL (70-100); IONIZED CALCIUM IF INDICATED NO; LIPASE 40 U/L (22-51); POTASSIUM 3.2 mmol/L (3.5-5.0); SODIUM 138 mmol/L (135-145); TOTAL PROTEIN 6.6 g/dL (6.7-8.2)
[2020-11-14] MEDS: AMPICILLIN/SULBACTAM 3 GM in SODIUM CHLORIDE 0.9% MINIBAG 100 ML IV SCH ×4 (05:30→23:44)
[2020-11-14] MEDS: SODIUM CHLORIDE FLUSH 0.9% 10 ML SYRINGE IVP SCH ×3 (08:00→23:53)
[2020-11-14] MEDS: LAMOTRIGINE 50 MG PO SCH (08:00)
[2020-11-14] MEDS ORDERED: LIDOCAINE MPF 2%-EPI 1:200000 20 ML VIAL ONE ×2 (09:54→13:29)
[2020-11-14] MEDS ORDERED: BUPIVACAINE 0.5% PF 30 ML VIAL ONE ×2 (09:54→13:29)
--- NOTE | 2020-11-14 10:12 | ANESTHESIA ---
Pre-Anesthesia VS, & Labs - Diagnosis cholelithiasis - Procedure Laparoscopic cholecystectomy Vital Signs: Temp Pulse Resp BP Pulse Ox 36.5 C 78 16 113/58 L 94 11/14/20 07:58 11/14/20 07:58 11/14/20 09:57 11/14/20 07:58 11/14/20 07:58 Height: 5 ft 7 in Weight (kg): 96.5 kg Body Mass Index: 33.3 BMI Classification: Obese - NPO >8 hours - Is Patient ?: No - Lab Results Current Lab Results: Laboratory Tests 11/14/20 04:45: Sodium 138, Potassium 3.2 L, Chloride 105, Carbon Dioxide 27, Anion Gap 6.0, BUN 7, Creatinine 0.6, Estimated GFR (MDRD) 103, Glucose 115 H, Calcium 8.8, Ionized Calcium NO, Total Bilirubin 0.7, Direct Bilirubin 0.3, AST 189 H, ALT 713 H, Alkaline Phosphatase 219 H, Total Protein 6.6 L, Albumin 3.5, Globulin 3.1, Lipase 40 11/14/20 04:45: WBC 5.7, RBC 4.40, Hgb 12.8, Hct 40.6, MCV 92.3, MCH 29.1, MCHC 31.5 L, RDW 13.5, Plt Count 251, MPV 10.2, Neut # (Auto) 3.2, Lymph # (Auto) 1.5, Arthur # (Auto) 0.5, Eos # (Auto) 0.5, Baso # (Auto) 0.1, Absolute Nucleated RBC 0.00, Nucleated RBC % 0.0 11/13/20 05:48: Sodium 140, Potassium 3.7, Chloride 105, Carbon Dioxide 28, Anion Gap 7.0, BUN 8, Creatinine 0.7, Estimated GFR (MDRD) 86 L, Glucose 101 H, Calcium 9.0, Ionized Calcium NO, Total Bilirubin 1.4 H, Direct Bilirubin 0.4, AST 680 H, ALT 1110 H, Alkaline Phosphatase 230 H, Total Protein 6.3 L, Albumin 3.5, Globulin 2.8, Lipase 303 H 11/13/20 05:48: WBC 6.0, RBC 4.50, Hgb 13.4, Hct 40.8, MCV 90.7, MCH 29.8, MCHC 32.8, RDW 13.5, Plt Count 256, MPV 10.2, Neut # (Auto) 4.5, Lymph # (Auto) 0.8 L , Arthur # (Auto) 0.3, Eos # (Auto) 0.3, Baso # (Auto) 0.1, Absolute Nucleated RBC 0.00, Nucleated RBC % 0.0 11/12/20 12:12: WBC 5.9, RBC 4.57, Hgb 13.6, Hct 41.7, MCV 91.2, MCH 29.8, MCHC 32.6, RDW 13.4, Plt Count 260, MPV 9.8, Neut # (Auto) 4.2, Lymph # (Auto) 1.0 L, Arthur # (Auto) 0.5, Eos # (Auto) 0.1, Baso # (Auto) 0.0, Absolute Nucleated RBC 0.00, Nucleated RBC % 0.0 11/12/20 12:12: Sodium 138, Potassium 3.7, Chloride 103, Carbon Dioxide 26, Anion Gap 9.0, BUN 12, Creatinine 0.6, Estimated GFR (MDRD) 103, Glucose 91, Calcium 9.0, Total Bilirubin 1.5 H, AST 1199 H, ALT 999 H, Alkaline Phosphatase 160 H, Total Protein 6.5 L, Albumin 3.6, Globulin 2.9, Albumin/Globulin Ratio 1.2 11/11/20 23:15: Sodium 142, Potassium 2.8 L, Chloride 106, Carbon Dioxide 24, Anion Gap 12.0, BUN 20, Creatinine 0.7, Estimated GFR (MDRD) 86 L, Glucose 121 H , Calcium 10.0, Total Bilirubin 0.6, AST 45 H, ALT 36, Alkaline Phosphatase 88, Total Protein 7.7, Albumin 4.6, Globulin 3.1, Albumin/Globulin Ratio 1.5, Lipase 27 11/11/20 23:15: WBC 8.8, RBC 5.00, Hgb 14.7, Hct 44.6, MCV 89.2, MCH 29.4, MCHC 33.0, RDW 13.2, Plt Count 338, MPV 10.0, Neut # (Auto) 5.0, Lymph # (Auto) 2.9, Arthur # (Auto) 0.6, Eos # (Auto) 0.1, Baso # (Auto) 0.1, Absolute Nucleated RBC 0.00, Nucleated RBC % 0.0 Fish Bones: 11/14/20 04:45 11/14/20 04:45 Home Medications and Allergies Home Medications: Ambulatory Orders Diclofenac Eleazar Solano [Devin] 75 mg PO BIDWM 11/12/20 Zolpidem [Ambien] 5 mg PO HS 11/12/20 lamoTRIgine [Lamictal Xr] 100 mg PO DAILY 11/12/20 Active Medications Hydromorphone HCl (Hydromorphone Bullet Assembly Press Setter Operator 20mg/100ml) 20 mg IV PRN PRN; Protocol PRN Reason: Abdominal Pain Last Admin: 11/12/20 15:59 Dose: 20 mg Documented by: Lactated Ringer's (Lr) 1,000 mls @ 100 mls/hr IV .Q10H [facility] Last Admin: 11/14/20 00:10 Dose: 100 mls/hr Documented by: Ampicillin Sodium/Sulbactam (Sodium 3 gm/ Sodium Chloride) 100 mls @ 200 mls/hr IV Q6HR [facility] Last Infusion: 11/14/20 06:00 Dose: Infused Documented by: Ondansetron HCl (Ondansetron 4 Mg/2 Ml Vial) 4 mg IVP Q6HR PRN PRN Reason: Nausea / Vomiting Lamotrigine [ Lamictal Xr] 50 Mg Tab 2 each PO DAILY [facility] Last Admin: 11/14/20 08:00 Dose: 2 each Documented by: Prochlorperazine Edisylate (Prochlorperazine 10 Mg/2 Ml Vial) 10 mg IVP Q6HR PRN PRN Reason: Nausea / Vomiting Sodium Chloride (Sodium Chloride Flush 0.9% 10 Ml Syringe) 10 ml IVP PRN PRN PRN Reason: NEEDED PER PROVIDER ORDERS Last Admin: 11/13/20 12:07 Dose: 10 ml Documented by: Sodium Chloride (Sodium Chloride Flush 0.9% 10 Ml Syringe) 10 ml IVP 0100,0900,1700 [facility] Last Admin: 11/14/20 08:00 Dose: 10 ml Documented by: Zolpidem Tartrate (Zolpidem 5 Mg Tablet) 5 mg PO HS PRN PRN Reason: Insomnia Last Admin: 11/13/20 21:12 Dose: 5 mg Documented by: Diclofenac Sodium Dr [Voltaren] 75 mg PO BIDWM 11/12/20 Zolpidem [Ambien] 5 mg PO HS 11/12/20 lamoTRIgine [Lamictal Xr] 100 mg PO DAILY 11/12/20 Allergies/Adverse Reactions: Allergies Allergy/AdvReac Type Severity Reaction Status Date / Time Sulfa (Sulfonamide Allergy Rash Verified 11/11/20 22:57 Antibiotics) Anes History & Medical History - Anesthetic History Anesthesia Complications: reports: No previous complications - Medical History Cardiovascular: reports: None Pulmonary: reports: None Gastrointestinal: reports: None Urinary: reports: None Neuro: reports: None Musculoskeletal: reports: Chronic back pain, Other Endocrine/Autoimmune: reports: None Skin: reports: None Smoking Status: Former smoker History of Cancer?: No - Surgical History Orthopedic: reports: Arthroscopic surgery, Carpal Tunnel surgery Exam General: Alert Dental: WNL Mouth Opening: Greater than 4 Fingerbreadths Neck Mobility: Reduced Mallampati classification: II Thyromental Distance: greater than 6 cm Respiratory: Lungs clear Cardiovascular: Regular rate Plan Anesthesia Type: General Consent for Procedure(s) Verified and Reviewed: Yes Code Status: Attempt Resuscitation ASA classification: 2-Mild systemic disease Is this case an emergency?: No
[2020-11-14] MEDS ORDERED: IOTHALAMATE MEGLUMINE 50 ML VIAL ONE (13:29)
[2020-11-14] MEDS ORDERED: fentaNYL 100 MCG/2 ML VIAL ONE (15:55)
[2020-11-14] MEDS ORDERED: MIDAZOLAM 2 MG/2 ML VIAL ONE (15:55)
[2020-11-14] MEDS ORDERED: ROCURONIUM 50 MG/5 ML VIAL ONE (15:59)
[2020-11-14] MEDS ORDERED: PROPOFOL 200 MG/20 ML VIAL IVP ONE (15:59)
[2020-11-14] MEDS ORDERED: LIDOCAINE-MPF 2% 5 ML VIAL ONE (15:59)
[2020-11-14] MEDS ORDERED: ACETAMINOPHEN 1,000 MG/100 ML 100 ML IV ONE (16:45)
[2020-11-14] MEDS ORDERED: IOTHALAMATE MEGLUMINE 50 ML VIAL IVP ONE ×2 (16:47)
[2020-11-14] MEDS ORDERED: LIDOCAINE 1%-EPI 1:100000 20 ML MDV SUBQ ONE ×2 (16:48)
[2020-11-14] MEDS ORDERED: BUPIVACAINE 0.5% PF 30 ML VIAL SUBQ ONE ×3 (16:48)
[2020-11-14] MEDS ORDERED: MORPHINE 2 MG/ML CARPUJECT IVP PRN (16:53)
[2020-11-14] MEDS ORDERED: NALOXONE 0.4 MG/ML VIAL IVP PRN (16:53)
[2020-11-14] MEDS ORDERED: ONDANSETRON 4 MG/2 ML VIAL IVP PRN (16:53)
[2020-11-14] MEDS ORDERED: HYDROmorphone 0.5 MG/0.5 ML SYRINGE IVP PRN (16:53)
[2020-11-14] MEDS ORDERED: ePHEDrine 50 MG/ML VIAL IVP PRN (16:53)
[2020-11-14] MEDS ORDERED: fentaNYL 100 MCG/2 ML VIAL IVP PRN (16:53)
[2020-11-14] MEDS ORDERED: METOCLOPRAMIDE 10 MG/2 ML VIAL IVP PRN (16:53)
[2020-11-14] MEDS ORDERED: ATROPINE ABBOJECT 1 MG/10 ML SYRINGE IVP PRN (16:53)
[2020-11-14] MEDS ORDERED: LACTATED RINGERS 1,000 ML IV SCH (17:00)
--- NOTE | 2020-11-14 17:41 | OPERATIVE REPORT ---
Operative Report - General Admit Date: 11/14/20 Procedure Date: 11/14/20 Planned Procedure: Laparoscopic cholecystectomy with intraoperative cholangiogram Pre-Op Diagnosis: Choledocholithiasis and cholelithiasis with chronic cholecystitis Procedure Performed: Laparoscopic cholecystectomy with attempted cholangiogram Post Op Diagnosis: Choledocholithiasis and cholelithiasis with chronic cho lecystitis - Procedure Note Primary Surgeon: Yudith Anesthesia Provider: LANEY Hernandez Anesthesia Technique: General ET tube, Local Pathology: Gall bladder in formalin to pathology Estimated Blood Loss (mL): 50 Drain/Tube Type: Remy drain (19 Indonesian Remy drain in the gallbladder fossa) Indications: Choledocholithiasis and cholecystitis Findings: 1 Inflamed and scarred gallbladder deep within the liver-intra hepatic gallbladder 2. Common duct easily visible and draped over the proximal portion of the cystic duct. Complications: Unable to complete cholangiogram - Other Other Information/Narrative: After obtaining informed consent the patient is brought to the operating room and placed in the supine position on the operating table. Following successful induction of general endotracheal anesthesia, appropriate padding of all bony prominences, and placement of appropriate monitors, the abdomen was prepped and draped in the standard surgical fashion. A timeout was held per scope protocol. All elements of the surgical safety checklist were followed before, during, and after the procedure. Following infiltration with local anesthetic to create a field block, an incision was created inferior to the umbilicus and carried down through the skin and subcutaneous tissue to reveal the fascia below. 2-0 Vicryl retention sutures were placed on either side of the midline and the abdomen was entered under direct vision using a 15 blade scalpel. A 10 mm blunt Mccabe balloon trocar was placed in the abdominal cavity and it was insufflated to 15 mmHg pressure. The patient was placed in reverse Trendelenburg position with the left side rotated toward the floor. A second trocar, 5 mm, was placed in the midepigastrium under direct vision and after anesthetization of the surrounding skin.A third trocar, also 5 mm was placed in the right upper quadrant for retraction of the gallbladder and a fourth 1 just medial to that as a working port as well. The gallbladder was examined. It was adherent to the surrounding structures including the omentum and the right colon. These structures were carefully dissected free from the surface of the gallbladder using a mixture of blunt and sharp dissection. The fundus of the gallbladder was then grasped and elevated up over the liver revealing the cholecysto hepatoduodenal ligament. The neck of the gallbladder was retracted laterally and the cystic duct and artery were carefully identified. The common duct was visualized Lining over the proximal portion of the cystic duct and was carefully avoided. The cystic duct was clipped distally right at its junction with the fundus of the gallbladder. A francisco was created in the duct for placement of a taut cholangiocatheter. Bile was seen to reflux out of the ductal structure. The Cholangiocath was then introduced into the duct but we were never able to pass more than 1/2 cm into the duct or to get forward flow of contrast. Eventually, the duct became dislodged from its more distal segment. At this point I elected to clip the cystic duct as our working space was small secondary to the position of the common duct. I felt at this point it was more important to be sure to preserve the integrity of the common duct. The cystic duct was clipped 3 times proximally. The cystic artery was identified medial to the duct and was clipped twice proximally, once distally, and divided. The gallbladder was then liberated from its bed in the liver using cautery. It is notable that this was an "intrahepatic" gall bladder with dense posterior scarring to the liver bed. It was placed in an Endo Catch bag and removed via the umbilical port with a camera in the epigastric position. The camera was replaced in the umbilical position and the abdomen was checked for hemostasis. I elected to place a drain in the gallbladder fossa. This was done by placing it through the midline trocar and bringing it out in the right upper quadrant. It was tucked into the gallbladder fossa and then sewn into place on the skin. The abdomen was irrigated with warm saline solution and aspirated free of all fluid and particulate matter. The trochars were then removed under direct vision and the abdomen desufflated. The umbilical incision was closed with interrupted Vicryl suture and Monocryl was placed in all of the skin incisions. All sponge, needle, and instrument counts were correct at the conclusion of the case. The patient was allowed awaken from anesthesia without difficulty and taken to the postanesthesia care unit in good condition.
[2020-11-14] MEDS ORDERED: KETOROLAC 30 MG/ML VIAL IVP SCH (18:00)
[2020-11-14] MEDS ORDERED: KETOROLAC 15 MG/ML VIAL ONE (18:04)
[2020-11-14] MEDS ORDERED: KETOROLAC 15 MG/ML VIAL IVP ONE (18:04)
[2020-11-14] MEDS ORDERED: LACTATED RINGERS 900 ML IV ONE (18:08)
--- NOTE | 2020-11-14 18:11 | ANESTHESIA POST OP EVALUATION ---
Anesthesia Post Eval - Post Anesthesia Eval Vitals: Last Vital Signs Temp 36.5 C 11/14/20 17:55 Pulse 83 11/14/20 17:55 Resp 20 11/14/20 17:55 BP 125/66 11/14/20 17:55 Pulse Ox 97 11/14/20 17:55 CV Function Including HR & BP: Stable Pain Control: Additional Therapies Ordered Nausea & Vomiting: Negative Mental Status: Baseline Respiratory Status: Airway Patent Hydration Status: Satisfactory Anesthesia Complications: None
[2020-11-14] MEDS: HYDROmorphone 0.5 MG/0.5 ML SYRINGE IVP PRN ×2 (19:26→21:36)
[2020-11-14] MEDS ORDERED: ACETAMINOPHEN 500 MG TABLET PO PRN (20:15)
[2020-11-14] MEDS: oxyCODONE 5 MG TABLET PO PRN (20:27)
[2020-11-14] MEDS: KETOROLAC 30 MG/ML VIAL IVP SCH (23:46)
[2020-11-15] MEDS: oxyCODONE 5 MG TABLET PO PRN ×3 (01:08→15:14)
[2020-11-15] MEDS: HYDROmorphone 0.5 MG/0.5 ML SYRINGE IVP PRN (03:00)
[2020-11-15 05:14] LABS: BASOPHILS % (AUTO) 0.2 %; EOSINOPHILS % (AUTO) 0.1 %; HCT - HEMATOCRIT 40.8 % (37.0-47.0); HGB - HEMOGLOBIN 12.8 g/dL (12.0-16.0); LYMPHOCYTES # (AUTO) 0.8 10^3/uL (1.5-3.5); LYMPHOCYTES % (AUTO) 9.3 %; MEAN CORPUSCULAR HEMOGLOBIN 28.8 pg (27.0-31.0); MEAN CORPUSCULAR HGB CONC 31.4 g/dL (32.0-36.0); MEAN CORPUSCULAR VOLUME 91.9 fL (81.0-99.0); MEAN PLATELET VOLUME 10.4 fL (7.9-10.8); MONOCYTES # (AUTO) 0.4 10^3/uL (0.0-1.0); MONOCYTES % (AUTO) 4.7 %; NEUTROPHILS # (AUTO) 7.8 10^3/uL (1.5-6.6); NEUTROPHILS % (AUTO) 85.4 %; PLT - PLATELET COUNT 273 10^3/uL (130-450); RED BLOOD COUNT 4.44 10^6/uL (4.20-5.40); RED CELL DISTRIBUTION WIDTH 13.1 % (12.0-15.0); WHITE BLOOD COUNT 9.1 x10^3/uL (4.8-10.8)
[2020-11-15 05:34] LABS: ALBUMIN 3.6 g/dL (3.2-5.5); ALBUMIN/GLOBULIN RATIO 1.2 (1.0-2.2); BILIRUBIN,TOTAL 0.6 mg/dL (0.2-1.0); CALCIUM 8.6 mg/dL (8.5-10.3); CREATININE 0.6 mg/dL (0.4-1.0); POTASSIUM 3.6 mmol/L (3.5-5.0); TOTAL PROTEIN 6.7 g/dL (6.7-8.2)
[2020-11-15] MEDS: AMPICILLIN/SULBACTAM 3 GM in SODIUM CHLORIDE 0.9% MINIBAG 100 ML IV SCH ×2 (05:34→11:53)
[2020-11-15] MEDS: KETOROLAC 30 MG/ML VIAL IVP SCH ×2 (05:34→11:54)
[2020-11-15] MEDS: LACTATED RINGERS 1,000 ML IV SCH (07:56)
[2020-11-15] MEDS: LAMOTRIGINE 50 MG PO SCH (08:00)
[2020-11-15] MEDS: SODIUM CHLORIDE FLUSH 0.9% 10 ML SYRINGE IVP SCH (08:00)
[2020-11-15 13:19] VITALS: BP 114/46
--- NOTE | 2020-11-15 14:18 | Discharge Plan ---
Discharge Plan Problem Reviewed?: Yes Disposition: Home, Self Care Condition: Stable Prescriptions: oxyCODONE [Roxicodone] 5 mg PO Q4HR PRN #20 tablet PRN Reason: Pain Ondansetron Odt [Zofran Odt] 4 mg TL Q6H PRN #10 tablet PRN Reason: Nausea / Vomiting Diet: Regular Activity Restrictions: Additional Comments (No lifting >5 pounds for 4 weeks) Shower Restrictions: No Driving Restrictions: Yes (Not while using pain meds) No Smoking: If you smoke, Please STOP! Call for help. Follow-up with: RAHUL CHAMBERS [Primary Care Provider] - Ana Zurita MD [Provider Admit Priv/Credential] -
--- NOTE | 2020-11-15 14:19 | DISCHARGE SUMMARY ---
"Discharge Summary Admit Date: 11/11/20 Discharge Date: 11/15/20 Discharging Provider: Yudith Primary Care Provider: Josesito Code Status: Attempt Resuscitation Condition at Discharge: Stable Discharge Disposition: 01 Home, Self Care - DIAGNOSES Admission Diagnoses: Cholelithiasis and choledocholithiasis Discharge Diagnoses with Status of Each Condition: Resolved - HPI History of Present Illness: Abrupt onset, Still present, Waxing and waning (onset about 5 days ago) RUQ pain and seen in ER. Given meds with improvement, and U/S showing gallstones with some wall thickening. Had some pains the ensuing days. Met with Surgeon in [place] to plan surgery. No date set as yet. Patient with abrupt worsening of pain this evening, worse than prior.She reports that none of the pain that she is experienced up to this point was as severe as what she felt this evening.Grabs this pain is worse than child bearing and reports that she had no anesthetic during her childbirth experiences. - CONSULTS | PROCEDURES Consultations: None Procedures: Laparoscopic cholecystectomy with attempted cholangiogram - HOSPITAL COURSE Hospital Course: Alia was admitted to the hospital for IV hydration, electrolyte replacement, pain control, and supportive care. On the first day after admission, repeat labs revealed biliary obstruction consistent with choledocholithiasis. Supportive care antibiotics were continued while we waited and hopeful anticipation that she would pass the stone. On the second hospital day she was noted to have a mild case of pancreatitis but electrolytes were somewhat i mproved. By the third hospital day, her pain had resolved and her electrolytes were reassuring. She was taken to the operating room where she had an uneventful laparoscopic cholecystectomy with attempted intraoperative cholangiogram. We were not able to complete the cholangiogram because she has a very short cystic duct and we were not able to cannulate it safely. She is noted to have an anatomic variant whereas the common duct overlies the cystic duct. The common duct was carefully preserved from injury. She was returned to her room with a drain for convalescence. She has done well overnight. Today she is tolerating a regular diet. Her pain is well controlled with oral medication. She is walking around and is passing gas. She denies any nausea. She will be discharged to her home in the care of her family. She will have a 5 pound lifting restriction for the next 4 weeks. I will see her back in my office in 2 weeks for postoperative visit. - ALLERGIES Allergies/Adverse Reactions: Allergies Allergy/AdvReac Type Severity Reaction Status Date / Time Sulfa (Sulfonamide Allergy Rash Verified 11/11/20 22:57 Antibiotics) - MEDICATIONS Home Medications: Ambulatory Orders Medication Instructions Recorded Confirmed Diclofenac Sodium Dr [Voltaren] 75 mg PO BIDWM 11/12/20 11/12/20 Zolpidem [Ambien] 5 mg PO HS 11/12/20 11/12/20 lamoTRIgine [Lamictal Xr] 100 mg PO DAILY 11/12/20 11/12/20 Acetaminophen [Tylenol] 500 mg PO Q4HR PRN tablet 11/15/20 Ondansetron Odt [Zofran Odt] 4 mg TL Q6H PRN #10 tablet 11/15/20 oxyCODONE [Roxicodone] 5 mg PO Q4HR PRN #20 tablet 11/15/20 - PHYSICAL EXAM AT DISCHARGE General Appearance: positive: No acute distress, Alert Eyes Bilateral: positive: Normal inspection, PERRL, EOMI ENT: positive: ENT inspection nml Neck: positive: Nml inspection, Thyroid nml, No JVD Respiratory: positive: No respiratory distress, Breath sounds nml Cardiovascular: positive: Regular rate & rhythm, No murmur Peripheral Pulses: positive: 1+ Abdomen: positive: Tenderness, Other (wounds are clean and dry and the drain has been removed). negative: Guarding, Rebound Back: positive: Nml inspection Skin: positive: Color nml Extremities: positive: Non-tender Neurologic/Psychiatric: positive: Oriented x3 - LABS Result Diagrams: 11/15/20 05:00 11/15/20 05:00 - QUALITY (Female Hip Fx Only) Was patient sent home on osteoporosis medication?: No - FOLLOW UP Follow Up: 2 weeks with [facility] - Dr. Zurita - TIME SPENT Time Spent in Discharge (Minutes): 20"
== END 2020-11-15 15:53 | disposition home or self-care (01) | DRG 417 ==
LOC: ED 22:39 → MS3 11-12 03:11 → OBSVTOIN 11-14 14:33
PROVIDERS: ADMIT Surgery; ATTEND Surgery
PROC: 0FT44ZZ Resection of Gallbladder, Percutaneous Endoscopic Approach (ICD-10-PCS; principal; 2020-11-14 15:15)
DX: K80.64 Calculus of gallbladder and bile duct with chronic cholecystitis without obstruction (principal); K85.90 Acute pancreatitis without necrosis or infection, unspecified; Z87.891 Personal history of nicotine dependence; E87.6 Hypokalemia; E66.9 Obesity, unspecified; Z68.33 Body mass index [BMI] 33.0-33.9, adult; K75.89 Other specified inflammatory liver diseases; Z20.822 Contact with and (suspected) exposure to COVID-19
CPT/HCPCS: 0202U; 36415; 76705; 80048; 80053; 80076; 81003; 83690; 85025; 96365; 96366; 96368; 96375; 96376; 99284; 99285; A9270; G0378; J0131; J1170; J7120; Q9961; 81001; 87086